=== PATIENT | female | born 1955 | race Asian ===

== ENCOUNTER 2016-09-21 06:27 | Emergency (ER) | payer SELFPAY ==
[2016-09-21 06:47] VITALS: BP 153/74
== END 2016-09-21 08:11 | disposition home or self-care (01) ==
LOC: ED 06:27
DX: F41.9 Anxiety disorder, unspecified (principal); G47.00 Insomnia, unspecified; F43.0 Acute stress reaction; Z88.1 Allergy status to other antibiotic agents